=== PATIENT | female | born 1990 | race Asian ===

== ENCOUNTER 2017-04-15 07:42 | Emergency (ER) | payer OTHER ==
[2017-04-15 08:14] VITALS: BP 139/72
== END 2017-04-15 08:14 | disposition home or self-care (01) ==
LOC: ED 07:42
DX: S61.230A Puncture wound without foreign body of right index finger without damage to nail, initial encounter (principal); J45.909 Unspecified asthma, uncomplicated; W46.1XXA Contact with contaminated hypodermic needle, initial encounter; Y92.89 Other specified places as the place of occurrence of the external cause; Y93.89 Activity, other specified; Y99.8 Other external cause status

== ENCOUNTER 2019-09-11 10:41 | Emergency (ER) | payer OTHER, SELFPAY ==
[~2019-09-11] VITALS: Ht 170.2 cm; Wt 72.6 kg
[2019-09-11 10:54] VITALS: Ht 170.2 cm; Wt 72.6 kg
[2019-09-11 12:31] VITALS: BP 139/87
== END 2019-09-11 12:31 | disposition home or self-care (01) ==
LOC: ED 10:41
DX: U07.1 COVID-19 (principal); J02.9 Acute pharyngitis, unspecified; J45.909 Unspecified asthma, uncomplicated
CPT/HCPCS: Q0092; U0003-CS